=== PATIENT | female | born 1935 | race Native Hawaiian/Other Pacific Islander ===

== ENCOUNTER 2016-10-09 17:25 | Inpatient (IN) | payer OTHER ==
[~2016-10-09] VITALS: Ht 157.5 cm; Wt 58.3 kg
[~2016-10-09 17:25] MED LIST: AMLO2.5T PO; ASA LOW DOSE81 MG PO; DIVALPROEX125 MG PO; DOCU SOFT100 MG PO; DONE5TAB PO; MULTIVITAMIN AD1 TAB PO; REMERON SOLTAB15 MG PO; TRAM50TA PO; TRIFLUOPERAZ2 MG PO; [UNRECOGNIZED DRUG - OTHER] EX
--- NOTE | 2016-10-09 18:00 | NUR ---
RECEIVED PT FROM [facility]. RECEIVED REPORT FROM KRIS PICKERING AT [facility]. PT ARRIVED VIA WC. PT ADMITTED TO PCU FOR SEPSIS. ORIENTED PT TO SURROUNDINGS. PLACED PT ON MONITORS. V/S STABLE. SR NOTED. PT WEARING EYEGLASSES WITH RIGHT LENS MISSING. PT HAS REDNESS TO PERINEUM AND YEAST NOTED IN THE FOLDS OF GROINS. REDNESS RADIATED TO BUTTOCKS. PT'S RIGHT HEEL RED, ABRASIONS NOTED TO TOP OF RIGHT FOOT AND RIGHT 2ND TOE.
--- NOTE | 2016-10-09 18:05 | NUR ---
BLOOD CULTURES X 2 COLLECTED. PT CAME WITH 22G IV IN L FA SL.
--- NOTE | 2016-10-09 18:25 | NUR ---
16F YANG INSERTED VIA TAIL BOARD MAN. CLOUDY YELLOW URINE WITH SEDIMENT NOTED. SPECIMEN COLLECTED. RECTAL SWAB OBTAINED FOR CDIFF.
[2016-10-09 19:00] VITALS: BP 101/42
--- NOTE | 2016-10-09 19:00 | NUR ---
PATIENT IS ALERT TO VOICE WITH CONFUSION. MARKET RESEARCHER, 16 FR YANG, IV 22GA LEFT FORARM TKO. NO ACUTE DISTRESS NOTED. BED IN LOW POSITION, TWO RAILS UP.
[2016-10-09 19:09] VITALS: BP 104/47; TEMP 98.3; Ht 157.5 cm; Wt 58.3 kg
[2016-10-09 20:00] VITALS: BP 107/42; TEMP 98.2
[2016-10-09 21:00] VITALS: BP 112/42
[2016-10-09] MEDS ORDERED: PROTONIX20 MG PO (21:45)
[2016-10-09 22:00] VITALS: BP 118/46
[2016-10-09] MEDS ORDERED: METAMUCIL0.52 GM PO (22:00)
--- NOTE | 2016-10-09 22:00 | NUR ---
PT ALERT AND REQUESTING SOMETHING TO EAT. PATIENT WAS GIVEN JELLO AND ATE 90% OF THE CUP. NO ACUTE DISTRESS OR COMPLAINTS AT THIS TIME.
[2016-10-09] MEDS ORDERED: ALUM-67 PO (22:14)
[2016-10-09] MEDS ORDERED: TYLENOL325 MG PO ×2 (22:16→22:21)
[2016-10-09] MEDS ORDERED: MAGNSUS68 PO (22:18)
[2016-10-09] MEDS ORDERED: EMOLOIN22 TOP (22:19)
[2016-10-09] MEDS ORDERED: ZIPR20IN IM (22:26)
[2016-10-09] MEDS ORDERED: RISP0.25 PO (22:28)
[2016-10-09] MEDS ORDERED: NITROFURANTN100 MG OR (22:31)
[2016-10-09] MEDS ORDERED: CITALOPRAM20 MG PO (22:32)
[2016-10-09] MEDS ORDERED: MEMA5TAB PO (22:33)
[2016-10-09] MEDS ORDERED: DIFLUCAN50 MG PO (22:35)
[2016-10-09] MEDS ORDERED: TERC0.4C VA (22:36)
[2016-10-09 23:00] VITALS: BP 107/40
[2016-10-10] VITALS (24 sets, daily range): BP systolic 81–137; BP diastolic 36–84; TEMP 97.5–98.4
--- NOTE | 2016-10-10 03:23 | NUR ---
PT RESTING AND WAKES TO VOICE. NO COMPLAINTS NOTED. NO ACUTE DISTRESS. OCCASIONAL NON PRODUCTIVE COUGH NOTED. WILL CONTINUE TO MONITOR.
[2016-10-10 05:58] LABS: PLATELET COUNT 213 K/uL (152-353)
[2016-10-10 06:21] LABS: POTASSIUM 3.3 mmol/L (3.6-5.2); SODIUM 136 mmol/L (136-145)
--- NOTE | 2016-10-10 07:30 | NUR ---
AM ASSESSMENT DONE.
--- NOTE | 2016-10-10 08:39 | NUR ---
PT SITTING UP IN BED EATING BREAKFAST.
--- NOTE | 2016-10-10 08:52 | NUR ---
PT C/O R 2ND TOE PAIN. 10/16. WILL MEDICATE.
--- NOTE | 2016-10-10 09:50 | NUR ---
PT RESTING QUIETLY WITH EYES CLOSED. WILL CONTINUE TO MONITOR.
--- NOTE | 2016-10-10 11:30 | NUR ---
PT WATCHING TV. NAD NOTED AT THIS TIME.
--- NOTE | 2016-10-10 12:45 | NUR ---
PT SITTING UP IN BED EATING LUNCH.
--- NOTE | 2016-10-10 13:50 | NUR ---
DR. URENA HERE TO SEE PT.
--- NOTE | 2016-10-10 16:15 | NUR ---
PT WATCHING TV. NAD NOTED AT THIS TIME.
--- NOTE | 2016-10-10 18:08 | NUR ---
PT SITTING UP EATING SUPPER. NAD NOTED AT THIS TIME.
--- NOTE | 2016-10-10 19:30 | NUR ---
PATIENT AWAKE, WATCHING TV, NO COMPLAINTS, NO ACUTE DISTRESS. 16 GA YANG INTACT, MILL ATTENDANT, PULSE OX, AND NIBP, IV 20 GA RIGHT AC TKO, FLUSHED WITH 10 CC NS AND PATENT. IV 22 GA LEFT HAND PATENT AND FLOWING WITH NS @ 75 ML/HR. BED IN LOW POSITION, TWO SIDE RAILS UP/
--- NOTE | 2016-10-10 20:00 | NUR ---
PATIENT WATCHING TV WITHOUT COMPLAINTS. NO ACUTE DISTRESS NOTED.
--- NOTE | 2016-10-10 20:50 | NUR ---
PATIENT COMPLAINS OF TENDERNESS TO HER RIGHT LITTLE TOE. COVER WAS REMOVED AND PATIENT VOICED RELIEF OF DISCOMFORT AT THIS TIME.
--- NOTE | 2016-10-10 21:53 | NUR ---
PATIENT REQUEST TO HAVE HER HEAD LET DOWN SO SHE COULD GO TO SLEEP. NO ACUTE DISTRESS NOTED. WILL CONTINUE TO MONITOR.
[2016-10-11] VITALS (24 sets, daily range): BP systolic 99–161; BP diastolic 39–80; TEMP 98.2–99.6
--- NOTE | 2016-10-11 03:14 | NUR ---
PATIENT AWAKE AND RESTLESS. PATIENT SEEMS MORE ANXIOUS " REPEATING TO ASK FOR HER WALKER AND WANTING TO KNOW WHY HER ISNT HERE AND WHY HER HASNT CALLED, ASKING WHY SHE CANT GO HOME"
--- NOTE | 2016-10-11 03:30 | NUR ---
CONTACTED DR JONES ABOUT PATIENTS CONDITION. PORBV BY DR JONES PATIENT WAS TO BE GIVEN GEODON 10MG IM ONCE.
--- NOTE | 2016-10-11 04:09 | NUR ---
PT WAS COMPLAINING OF PAIN TO HER R TOE. PT WAS GIVEN TYLENOL 650 MG PO FOR PAIN RELIEF @ 0400.
--- NOTE | 2016-10-11 06:09 | NUR ---
PT ASEEP AND RESTING. AWAKE AND ALERT TO VOICE. NO COMPLAINTS OR ACUTE DISTRESS NOTED. WILL CONTINUE TO MONITOR.
[2016-10-11 06:42] LABS: PLATELET COUNT 184 K/uL (152-353)
[2016-10-11 06:52] LABS: POTASSIUM 3.6 mmol/L (3.6-5.2); SODIUM 136 mmol/L (136-145)
--- NOTE | 2016-10-11 07:00 | NUR ---
REPORT FROM PM STAFF. PT RESTING WITH EYES CLOSED, COLOR PINK,SKIN W/D.RESP EVEN & UNLABORED,O2 SATS 95% ON RM AIR. CHEST ESS CLEAR WITH DIMINISED BASES. CONGESTED SOUNDING COUGH AT INTERVALS. YANG TO BSD WITH CL YELLOW URINE. BS+. FEET UP ON A PILLOW,HEEL PROTECTOR INTACT R FOOT. ROUSES TO TOUCH & VOICE & BACK TO SLEEP. IV NS INFUSING INTO LFA IV SITE WITHOUT PROBLEMS PER DR'S ORDER.
--- NOTE | 2016-10-11 09:30 | NUR ---
PT AWAKE,FED 50% OF MEAL. ORIENTED TO NAME.PT STATES'IM GOING TO '. REALITY ORIENTATION. REMAINS CONFUSED BUT CALM.
--- NOTE | 2016-10-11 09:51 | NUR ---
PT COUGHING,O2 SAT DOWN TO 91%,HR UP TO 179 BRIEFLY WHILE COUGHING,PLACED PT ON O2 AT 2L/NC. O2 SATS 95%.
--- NOTE | 2016-10-11 11:16 | NUR ---
PT WITH INCONTINENT SOFT BROWN BM, PERICARE,PT ASSISTED TO TURN FOR COMFORT. PT CONTINUES TO COUGH AT INTERVALS. REPORTED TO MARIA L GOOD RN/BEAU/DR URENA.
--- NOTE | 2016-10-11 12:00 | NUR ---
OSMIN BUNDY SPEECH THERAPY IN TO SEE PT TO EVALUATE COUGHING AFTER EATING & DRINKING.
--- NOTE | 2016-10-11 12:10 | NUR ---
DR URENA IN TO SEE PT. NEW ORDERS.
--- NOTE | 2016-10-11 13:49 | NUR ---
PT WITH LARGE LOOSE BROWN BM. PERICARE,LANISEPTIC APPLIED,TURNED & REPOSITIONED FOR COMFORT.
--- NOTE | 2016-10-11 16:45 | NUR ---
PT WITH LARGE LOOSE BROWN BM. PERICARE,LANISEPTIC APPLIED TO GROIN & RED AREA ON R BUTTOCK.GOWN & DRAW SHEET CHANGED.REPOSITIONED FOR COMFORT. PT PLEASANT. CONFUSED. PT CONTINUES TO COUGH AT INTERVALS.
--- NOTE | 2016-10-11 17:36 | NUR ---
PT MEDICATED FOR COUGHWITH [address] ORDER[address]
--- NOTE | 2016-10-11 18:21 | NUR ---
PT SITTING UP WATCHING TV, PT COUGHING AT INTERVALS,O2 SATS 95% ON 2L/NC.
--- NOTE | 2016-10-11 22:10 | NUR ---
PT HAS BEEN YELLING AND RESTLESS. NOTED PT WITH DIFFICULTY IN SWALLOWING. PT WITH AUDIBLE WHEEZING AND CRACKLES. PT WAS GIVEN GEODON 10 MG IM TO HER RGM.
--- NOTE | 2016-10-11 22:34 | NUR ---
PT HAS BEEN UP TWO TIMES TO USE BSC. PT HAD SMALL BM. BLACK SOFT STOOL.
--- NOTE | 2016-10-11 22:48 | NUR ---
PT WAS REPOSITIONED TO HER LEFT SIDE.
[2016-10-12] VITALS (24 sets, daily range): BP systolic 96–155; BP diastolic 52–93; TEMP 99.1–100
--- NOTE | 2016-10-12 04:43 | NUR ---
PT WAS REPOSITIONED TO HER LEFT SIDE. PT COUGHING UNPRODUCTIVELY. PT WITH WHEEZING AUDIBLE. APPLIED LANASEPTIC TO PT'S INNER THIGHS AND SRUTHI AREA.
[2016-10-12 05:26] LABS: PLATELET COUNT 213 K/uL (152-353)
[2016-10-12 05:42] LABS: POTASSIUM 3.5 mmol/L (3.6-5.2); SODIUM 136 mmol/L (136-145)
--- NOTE | 2016-10-12 06:03 | NUR ---
SEE EMAR TYLENOL 650 MG PO GIVEN FOR TEMP 100 DEGREES.
--- NOTE | 2016-10-12 08:21 | NUR ---
AM ASSESSEMENT DONE TEMP 99.3 ORAL HOB UP CHEST X RAY DONE. NOTED NON PRODUCTIVE COUGH.. RESP DEPT HERE PT STARTED ON BREATHING TX.
--- NOTE | 2016-10-12 10:30 | NUR ---
REPOSITIONED IN BED . NOTED PT COUGHING AFTER EATING HOB UP HIGH, PT ON THICKEN LIQUIDS AND PUREED DIET WILL TAKE FEW BITES THEN STOP " I'VE HAD ENOUGH". NOTED INCREASED COUGH AFTER EATING. ASSISTED WITH BED BATH SKIN CARE. PT SLEEPING AT INTERVALS.
--- NOTE | 2016-10-12 11:00 | NUR ---
DR URENA VISITED CHECKED PT RECIEVED NEW ORDERS. REPORT PT COUGHING, NURSING HELD BACK NOT GIVING VERY MUCH EVEN THICKEN LIQUIDS. RECIEVED ORDER TO HOLD NPO EXCEPT CRUSHED MEDS MIXED WITH PUDDING. MONITOR DELAYED COUGHING.
--- NOTE | 2016-10-12 15:45 | NUR ---
TURNED AND REPOSITIONED IN BED HOB UP. COUGHING BUT NOT MUCH. HAS LIKE A DELAYED SWALLOW THEN COUGH. RESTED BETTER SINCE HOLDING FOOD AND FLUID, PUREED AND THICKEN.
--- NOTE | 2016-10-12 18:00 | NUR ---
RESTING QUIETLY TURNED AND REPOSITIONED. MOUTH CARE RAYMOND OK. PT REMAINS NPO. HOB UP.
[2016-10-13] VITALS (22 sets, daily range): BP systolic 99–161; BP diastolic 56–80; TEMP 89–100.6
--- NOTE | 2016-10-13 00:39 | NUR ---
PT WAS GIVEN TYLENOL CRUSHED WITH PUDDING. PT IS POSITIONED WITH HEAD OF BED UP.
--- NOTE | 2016-10-13 07:30 | NUR ---
AM ASSESEMENT DONE. PT NPO CONTINUES WITH COUGH. IV LEFT ARM NOT WORKING WILL NOT FLUSH. IV BENT. IV REMOVED MOVED TO RIGHT ARM GOOD BLOOD RETURN INSP WHEEZE RIGHT LUNG FIELD.
[2016-10-13 08:27] LABS: PLATELET COUNT 237 K/uL (152-353)
[2016-10-13 08:46] LABS: POTASSIUM 3.7 mmol/L (3.6-5.2); SODIUM 136 mmol/L (136-145)
--- NOTE | 2016-10-13 09:30 | NUR ---
PT RESTING WITH EYES CLOSED,NO C/O PAIN AT THIS TIME, CONGESTED COUGH AT INTERVALS.
--- NOTE | 2016-10-13 11:08 | NUR ---
REPOSITIONED IN BED SKIN CARE WET COUGH CONTINUES, PT KEEPS ASKING FOR WATER, WET HER MOUTH, PT STATES " I WANT A BIG CUP OF WATER" EXPLAINED TO PT THAT SHE WAS NOT SWALLOWING PROPERLY, IT WAS GETTING INTO HER LUNGS. PT DID NOT UNDERSTAND KEEPS ASKING FOR WATER. WILL WET MOUTH WITH SPONGE. HOB UP.
--- NOTE | 2016-10-13 11:50 | NUR ---
PT GETTING LOUD CALLING OUT FOR WATER, KEEPING MOUTH WET, EXPLAINED THE NEED TO HOLD FLUIDS TOLD HER THAT SHE WAS NOT SWALLOWING RIGHT. PT GETTING ANXIOUS GEODON 10 MG IM L GM.
--- NOTE | 2016-10-13 13:00 | NUR ---
MED EFFECTIVE RESTING EASIER. REPOSITIONED IN BED. DR URNEA VISITED TALKED WITH PT TRIED TO EXPLAIN TO HER WHY SHE COULD NOT DRINK. PT COUGHING AT INTERVALS. PT HAD ALSO BEEN UPSET THAT HER HAD NOT BEEN HERE TO SEE HER. RESTING BETTER NOW.
--- NOTE | 2016-10-13 14:49 | NUR ---
TURNED AND REPOSITIONED LEFT SIDE. RESTING QUIETLY.
--- NOTE | 2016-10-13 16:24 | NUR ---
REPOSITIONED TO RIGHT SIDE. PT CONTINUES TO ASK FOR WATER. GAVE SMALL SIP THICKEN TEA MED CRUSHED GAVE WITH PUDDING HOB UP. PT COUGHING NON PRODUCTIVE.
--- NOTE | 2016-10-13 20:34 | NUR ---
ORAL CARE GIVEN. REPOSITIONED PT IN BED.
--- NOTE | 2016-10-13 21:34 | NUR ---
PM ASSESSMENT WAS COMPLETED. PT IS CONFUSED AND YELLING "". STATES SHE IS "MAD AT HER BECAUSE HE IS WITH ANOTHER WOMAN". ATTEMPT TO ORIENT PT TO SITUATION. PT IS NPO BECAUSE UNABLE TO SWALLOW. PT IS POSITIONED UP IN BED.ASPIRATION PRECAUTIONS IN USE. LOWER EXT ARE ELEVATED ON PILLOW.
--- NOTE | 2016-10-13 22:05 | NUR ---
LASIX 20 MG IVSP GIVEN.
[2016-10-14] VITALS (13 sets, daily range): BP systolic 112–146; BP diastolic 6–90; TEMP 98.3–99.4
--- NOTE | 2016-10-14 01:57 | NUR ---
PT YELLING "WHO IS GONNA HELP ME GET READY FOR BED". ATTEMPT TO ORIENT PT TO SITUATION. PT WITH MENTAL HEALTH HX.
--- NOTE | 2016-10-14 02:09 | NUR ---
ORAL CARE GIVEN. ASSESSED PT'S SKIN FOR ANY REDNESS. NONE NOTED. REPOSITIONED LOWER EXT ON PILLOW. RIGHT FOOT WITH FOOT DROP. HEEL PROTECTOR ON AND INTACT.
--- NOTE | 2016-10-14 02:51 | NUR ---
ULTRAM 50 PO GIVEN FOR ELEVATED TEMP AND ARTHRITIS.
[2016-10-14 04:43] LABS: POTASSIUM 3.5 mmol/L (3.6-5.2); SODIUM 134 mmol/L (136-145)
--- NOTE | 2016-10-14 05:14 | NUR ---
TOBRAMYCIN 80 MG STARTED. TOBRAMYCIN LEVEL IN NORMAL RANGE.
--- NOTE | 2016-10-14 05:15 | NUR ---
0506 AM GEODON 10 MG GIVEN IM TO RGM PT YELLING AND SCREAMING. RESTLESS.
--- NOTE | 2016-10-14 07:30 | NUR ---
AM ASSESSMENT DONE. MOUTH CARE DONE. PT REPOSITIONED TO R SIDE.
[2016-10-14 08:30] LABS: PLATELET COUNT 252 K/uL (152-353)
--- NOTE | 2016-10-14 09:56 | NUR ---
PT RESTING QUIETLY WITH EYES CLOSED.
--- NOTE | 2016-10-14 11:00 | NUR ---
DR. URENA HERE TO SEE PT.
--- NOTE | 2016-10-14 12:14 | NUR ---
PT AGITATED AND HOLLERING OUT. YESSY SULLIVAN. ATTEMPTED TO ORIENT PT TO ROOM SURROUNDINGS.
--- NOTE | 2016-10-14 12:48 | NUR ---
PT RESTING QUIETLY WITH EYES CLOSED.
--- NOTE | 2016-10-14 14:18 | NUR ---
PT RESTING QUIETLY WITH EYES CLOSED.
--- NOTE | 2016-10-14 15:06 | NUR ---
MONICO HAMILTON HERE TO SEE PT.
--- NOTE | 2016-10-14 16:30 | NUR ---
PT'S CALLED TO CHECK ON PT.
--- NOTE | 2016-10-14 17:44 | NUR ---
PT REPOSITIONED IN BED. NAD NOTED AT THIS TIME.
--- NOTE | 2016-10-14 20:40 | NUR ---
PT YELLING OUT "WENCESLAO, WENCESLAO, WENCESLAO" PT EXPERIENCING CONFUSION AND NOT EASILY REDIRECTED. PT BECOMING AGITATED. PRN DOSE OF GEODON TO BE GIVEN. NO ACUTE RESP DISTRESS, WILL CONTINUE TO MONITOR PT.
[2016-10-15] VITALS (24 sets, daily range): BP systolic 122–181; BP diastolic 49–90; TEMP 97.9–98.7
[2016-10-15 05:07] LABS: POTASSIUM 3.1 mmol/L (3.6-5.2); SODIUM 140 mmol/L (136-145)
[2016-10-15 05:41] LABS: PLATELET COUNT 302 K/uL (152-353)
--- NOTE | 2016-10-15 07:30 | NUR ---
PATIENT LAYING IN BED ALERT AND RESPONSIVE. BED IN LOWER POSITION, TWO SIDE RAILS UP. RESEARCH MANAGEMENT ASSOCIATE, NIBP, PULSE OX, O2 @ 2LPM NC, IV 22 GA RIGHT FORARM, IV 20 GA RIGHT AC, 16 FR YANG CATH. NO ACUTE DISTRESS NOTED. PATIENT ASKING WHEN SHE CAN EAT.
--- NOTE | 2016-10-15 09:15 | NUR ---
PATIENT COMPLAINS OF PAIN TO HER RIGHT ARM. FOREARM IV SITE APPEARS RED AND HAS EDEMA NOTED. FLUIDS WERE MOVED TO THE IV SITE IN THE RIGHT AC. IV WAS REMOVED FROM THE RIGHT FOREARM.
--- NOTE | 2016-10-15 09:45 | NUR ---
PATIENT COMPLAINS ABOUT BEING HUNGRY AND WANTS TO EAT. IV WAS STARTED IN THE LEFT FOREARM AND BLOOD DRAWN FOR THE LABS.
--- NOTE | 2016-10-15 10:22 | NUR ---
PATIENT ASKING FOR WATER. MOUTH CARE WAS GIVEN TO MOISTEN LIPS AND TOUNGE. PATIENT SAID SHE WAS BETTER NOW
--- NOTE | 2016-10-15 10:33 | NUR ---
DR URENA AT BEDSIDE TO ASSESS PT
--- NOTE | 2016-10-15 10:40 | NUR ---
VERBAL ORDER BY DR URENA TO CONTINUE PO TYLENOL [address] URENA INSTRUCTED TO GIVE WITH SMALL AMOUNT OF WATER AND ALLOW FOR MINIMAL THICKENED LIQUIDS.
--- NOTE | 2016-10-15 10:50 | NUR ---
PATIENT WAS POSITIONED IN A FOWLERS POSITION. SHE WAS GIVEN PRESCRIBED TYLENOL FOLLOWED BY SMALL SIPS OF WATER. NO ISUES OR COMPLAINTS. NO COUGH NOTED PRIOR OR AFTER. PATIENT WAS GIVEN ONE CUP OF JELLO PUDING WITHOUT INCIDENT OR COMPLAINT. SHE ATE IN SMALL AMOUNTS. NO COUGH NOTED PRIOR OR AFTER. PT LEFT IN FOWLERS POSITION AFTERWARDS.
[2016-10-15 11:14] LABS: POTASSIUM 3.2 mmol/L (3.6-5.2); SODIUM 137 mmol/L (136-145)
--- NOTE | 2016-10-15 13:15 | NUR ---
PT ON THE PHONE ESAU AT .
--- NOTE | 2016-10-15 14:00 | NUR ---
PT CONT TO TALK ABOUT HER , SHE WANTS STAFF TO CALL HIM AND ASK WHEN HE IS COMING TO SEE HER. PT IS EASLIY REDIRECTED. BUT EVENTUALLY GOES BACK TO TALKING ABOUT HER . PT IS CALM AT THIS TIME. YESSY IS NOT NEEDED AT THIS TIME
--- NOTE | 2016-10-15 16:00 | NUR ---
TALKING WITH PT. ANXIETY INCREASES, PT RE DIRECTED. PT BECOMES INCREASELY AGITATED WHEN TALKING ABOUT HER . PT IS PLEASANT OTHERWISE.
--- NOTE | 2016-10-15 17:00 | NUR ---
LARGE BM NOTED, PT CLEANED AND DRYED.
--- NOTE | 2016-10-15 17:04 | NUR ---
PT RESP INCREASED, HR INCREASED, PT AGITATED, PT WAS ASKED IF SHE THOUGHT SHE NEEDED SOMETHING FOR AGITATION, PT STATED SHE THOUGH SO. PT GIVEN GEOGON
--- NOTE | 2016-10-15 17:30 | NUR ---
PATIENT HAD BM, ALL BED LINEN CHANGED AND PATIENT CLEANED WITHOUT INCIDENT.NAD NOTED.
--- NOTE | 2016-10-15 18:45 | NUR ---
BEDSIDE REPORT RECEIVED FROM TG FOREMAN RN. HEP LOCK TO RIGHT AC DC'D DUE TO SWELLING AND REDNESS AT SITE. IV TO LEFT FOREARM INFUSING PER PUMP.
--- NOTE | 2016-10-15 19:15 | NUR ---
PM ASSESSMENT COMPLETED. YANG CATHETER DRAINING DONYA URINE AT BEDSIDE. PT TALKING AND LAUGHING WITH NURSES. PT INSTRUCTED PER TG FOREMAN RN ON INCENTIVE SPIROMETER. PT ABLE TO PULL 750 WITHOUT DIFFICULTY.
--- NOTE | 2016-10-15 19:55 | NUR ---
RESPIRATORY THERAPIST AT BEDSIDE FOR BREATHING TREATMENT.
--- NOTE | 2016-10-15 20:19 | NUR ---
PT REQUESTS BE CALLED. PT TALKED WITH PT. PT ASKING HIM TO VISIT HER, IS 84 YEARS OLD, STATES HE CANNOT MAKE THE TRIP. WILL SEE HER WHEN SHE RETURNS TO [place].
--- NOTE | 2016-10-15 21:08 | NUR ---
PT BECOMING INCREASINGLY AGITATED. PT STATES HER IS CHEATING ON HER AND IF SHE HAD ENOUGH MONEY SHE WOULD DIVORCE HIM. NURSE TALKING WITH PT CONCERNING OTHER AREAS OF HER LIFE, CHILDREN, GRANDCHILDREN, ETC.
--- NOTE | 2016-10-15 22:11 | NUR ---
PT BECOMING INCREASING AGITATED CONCERNING . MEDICATED WITH GEODON 10MG IM.
--- NOTE | 2016-10-15 22:53 | NUR ---
TRAMADOL GIVEN FOR BACK PAIN. PAIN SCALE 7.
--- NOTE | 2016-10-15 23:12 | NUR ---
PT YELLING SHE NEEDS TO CALL . NURSE EXPLAINED IT IS TOO LATE TO CALL ANYONE AT NIGHT. PT INSISTS POLICE BE SENT TO HER HOUSE TO SEE WHO HER HAS IN HIS BED. NURSE TRYING TO REORIENT PT. UNABLE TO REORIENT PT AT THIS TIME.
--- NOTE | 2016-10-15 23:30 | NUR ---
PT CONTINUES TO REMAIN AGITIATED STATING SHE HAS PNEUMONIA AND NEEDS TO BE TAKEN BY AMBULANCE TO HOSPITAL. UNABLE TO REORIENT.
--- NOTE | 2016-10-15 23:50 | NUR ---
DR. JONES NOTIFIED OF PT CONTINUED AGITATION. ORDER RECEIVED.
[2016-10-16] VITALS (23 sets, daily range): BP systolic 108–170; BP diastolic 54–87; TEMP 98.1–99
--- NOTE | 2016-10-16 00:07 | NUR ---
HALDOL 2.5MG GIVEN IV ORDERED FOR AGITATION.
--- NOTE | 2016-10-16 00:08 | NUR ---
PT SHOUTING TO CALL POLICE TO TAKE HER TO HER HOME.
--- NOTE | 2016-10-16 00:18 | NUR ---
RESPIRATORY THERAPIST PRESENT FOR BREATHING TREATMENT.
--- NOTE | 2016-10-16 01:00 | NUR ---
NURSE SITTING AT BEDSIDE HOLDING PT HAND TO CALM PT.
--- NOTE | 2016-10-16 02:52 | NUR ---
PT STATES DOES NOT WANT TO BE ALONE. NURSE AT BEDSIDE.
--- NOTE | 2016-10-16 05:54 | NUR ---
PT AWAKE. PT IS COOPERATIVE LONG NURSE IS IN HER SIGHT LINE. STATES SHE DOES NOT WANT TO BE ALONE.
--- NOTE | 2016-10-16 07:00 | NUR ---
REPORT FROM PM STAFF. PT RESTING IN LOW FOWLERS. NO C/O AT THIS THIS TIME.
[2016-10-16 07:40] LABS: PLATELET COUNT 381 K/uL (152-353)
[2016-10-16 07:41] LABS: POTASSIUM 3.2 mmol/L (3.6-5.2); SODIUM 139 mmol/L (136-145)
--- NOTE | 2016-10-16 09:00 | NUR ---
PT WITH LARGE LOOSE BM,PERICARE.
--- NOTE | 2016-10-16 11:00 | NUR ---
SPEECH AT BS TO CHECK PT;S SWALLOWING CAPABILITIES.
--- NOTE | 2016-10-16 11:14 | NUR ---
OSMIN BUNDY SPEECH CALLED PT'S ABOUT POSSIBLE FEEDING TUBE INSERTION. 'OK ' PER 'IF THE DR THINKS SHE NEEDS IT'.
--- NOTE | 2016-10-16 11:44 | NUR ---
PT CALLING OUT LOUDLY & FREQUENLY. AGGITATED BECAUSE HER HAS NOT BEEN TO SEE HER. MEDICATED WITH GEODON 10 MG IM PER ORDER. WHEN CALLED,DOESN'T WANT TO TALK TO PT.
--- NOTE | 2016-10-16 12:50 | NUR ---
PT WITH REPETITIVE CALLING FOR HELP.COME HERE ,COME HERE NURSE, I NEED SOME HELP. I WANT MY . PT TALKED TO NUMEROUS TIMES, ENCOURAGED TO TAKE SLOW DEEP BREATHS, PT WILL CALM WHEN NURSE OR OTHER STAFF AT BS,RR RATE 26& WILL SLOW TO NORMAL WHEN ENCOURAGED TO DO SO. RT IN WITH PT,O2 SAT 95% ON O2 AT 2L/NC. DR URENA IN TO SEE PT. PHONE CALL TO DR SKELTON PER DR URENA. DR SKELTON WILL COME BY TO SEE PT.
--- NOTE | 2016-10-16 13:20 | NUR ---
PT REMAINS AGGITATED AT INTERVALS CALLING OUT LOUDLY,ACCUSING HER OF 'HAVING A WOMAN WITH HIM'.'THATS WHY HE WON'T COME TO SEE ME'! PT TURNED & REPOSITIONED FOR COMFORT. PT CONTINUES TO CALL OUT LOUDLY, 'I WANT A DR, I WANT A DR,I WANT A DR, I WANT A DR!', REMINDED PT THAT THE DR HAD JUST LEFT. PT THEN SAYS REPETITIVELY, 'NURSE,NURSE.NURSE'! I NEED SOME HELP,HELP,HELP!' ASSURED PT THAT SHE WAS OK & WE WERE HERE WITH HER.
--- NOTE | 2016-10-16 13:40 | NUR ---
DR SKELTON IN TO SEE PT. PT CONTINUES WITH HER REPETITIVE CALLING OUT & REPEATING SELF, NEW ORDERS.
--- NOTE | 2016-10-16 14:22 | NUR ---
PT MEDICATED WITH RISPIERDONE CONSTA 50 MG IM R DELTOID PER DR BERGERON ORDER.PT CONTINUES WITH REPETITIVE CALLING OUT AT THIS TIME.
--- NOTE | 2016-10-16 17:21 | NUR ---
TALKED WITH . WILL DO GT INSERTION TOMORROW. PHONE CALL TO DR CORTES,TALKED TO KAROLYN,WILL REMIND HIM OF GT INSERTION TOMORROW.
--- NOTE | 2016-10-16 19:00 | NUR ---
BEDSIDE REPORT RECEIVED FROM ALLA ZELAYA RN. IV SITE WITHOUT REDNESS OR SWELLING. YANG CATHETER DRAINING CLEAR URINE AT BEDSIDE. PT TALKING CONSTANTLY BEGGING FOR NIGHTTIME MEDICATION. NURSE EXPLAINED WILL BE GIVING MEDICATION TO HER.
--- NOTE | 2016-10-16 19:27 | NUR ---
HALDOL 4MG AND ATIVAN 1MG IM IN RIGHT HIP. PT TOLERATED WELL.
--- NOTE | 2016-10-16 19:41 | NUR ---
PT CONTINUES TO ACUSE OF HAVING A WOMAN IN HER HOUSE WHILE SHE IS HERE.
--- NOTE | 2016-10-16 19:57 | NUR ---
PT REFUSES TO WEAR SAMMY HOSE. STATES YOU WILL NOT PUT THOSE ON ME.
--- NOTE | 2016-10-16 20:01 | NUR ---
NURSE REMAINS AT BEDSIDE. PT STATES LONG SHE SEES ME SHE CAN BREATH BETTER. PT CONTINUES TO HAVE NONPRODUCTIVE COUGH.
--- NOTE | 2016-10-16 21:43 | NUR ---
PT RESTING QUIETLY AT PRESENT. RESP EVEN AND UNLABORED.
[2016-10-17] VITALS (31 sets, daily range): BP systolic 107–152; BP diastolic 47–95; TEMP 97.5–98.6
--- NOTE | 2016-10-17 04:05 | NUR ---
NURSE WANTED PATIENTTO SLEEP AT MIDNIGHT TREATMENT AND FOUR AM TREATMENT
[2016-10-17 06:23] LABS: POTASSIUM 3.7 mmol/L (3.6-5.2); SODIUM 138 mmol/L (136-145)
[2016-10-17 06:36] LABS: PLATELET COUNT 392 K/uL (152-353)
--- NOTE | 2016-10-17 09:26 | NUR ---
RESTING QUIETLY THIS MORNING MEDS GIVEN LAST NIGHT EFFECTIVE. PT FOR SURGERY TODAY PEG TO BE PLACED. PT TURNED AND REPOSITIONED IN BED HOB UP. CONTINUES WITH COUGH NONPRODUCTIVE, SCATTERED RONCHI. PT IS NPO.
--- NOTE | 2016-10-17 10:30 | NUR ---
PT TALKING MORE NOTED INCREASED AGITATION, REPEATING HERSELF, PT NPO FOR SURGERY. MEDS HELD FOR AGITATION. PT WANTS SOMETHING TO EAT AND DRINK.
--- NOTE | 2016-10-17 11:28 | NUR ---
JASON FROM OR HERE ON PHONE WITH RECIEVED CONSENT FOR PEG TUBE PLACEMENT. DR URENA HERE RECIEVED REPORT ON PT. PT TO OR VIA BED FOR PEG TUBE PLACEMENT.
--- NOTE | 2016-10-17 12:00 | NUR ---
PT'S DAUGHTER ESTEPHANIA PARSONS CALLED TO CK ON PT. DISCUSSED PT'S STATUS & INSERTION OF GASTRIC TUBE.
--- NOTE | 2016-10-17 12:30 | NUR ---
RECIEVED CALL FROM JASON REPORT ON PT. PT COMING BACK TO U1. PT ALERT BACK ON MONITOR, SURGICAL SITE CLEAN AND DRY. CHECKED BLOOD SUGAR 94. NO COMPLAINTS OF PAIN.
--- NOTE | 2016-10-17 14:02 | NUR ---
PT C/O PAIN AT OP SITE, CHECKED DRESSING CLEAN AND DRY. REPORT TO DR URENA, RECIEVED NEW ORDERS FOR PAIN MEDS.
--- NOTE | 2016-10-17 14:24 | NUR ---
PT RECIEVED PAIN MEDS ORDERED CALLING OUT OVER AND OVER "I WANT TO CALL MY " HAD TALKED WITH HIM EARLIER, PT KEEPS REPEATING HERSELF. "WHY WON'T YOU LET ME CALL MY , I PROMISE I WON'T FUSS AT HIM". PT STATED THAT SHE IS GETTING AGITATED.
--- NOTE | 2016-10-17 14:45 | NUR ---
PT GETTING LOUDER, AGITATED RECIEVED MED FOR AGITATION IM ORDERED. APPLIED BELLY BINDER. INC SMALL AMOUNT BROWN STOOL SRUTHI CARE DONE.
--- NOTE | 2016-10-17 15:24 | NUR ---
RESTING MUCH BETTER EYES CLOSED RESP EVEN MEDS EFFECTIVE.
--- NOTE | 2016-10-17 17:25 | NUR ---
PT RESTING QUIETLY WITH EYES CLOSED.NO C/O AT THIS TIME.
--- NOTE | 2016-10-17 18:38 | NUR ---
PT AWAKE CALLING OUT. CALLING FOR FAMILY MEMBER TO HELP HER GET OUT. PT ALSO BEGINNING TO C/O PAIN ABD. DRESSING DRY CLEAN INTACT WILL GIVE PAIN MEDS ORDERED.
--- NOTE | 2016-10-17 18:58 | NUR ---
PT CRYING OUT C/O " I'M HURTING" DEMEROL 12.5 MG IV SLOWLY FOR POST OP PAIN.
--- NOTE | 2016-10-17 19:44 | NUR ---
LAVINIA Donovan RN WANTED PATIENT TO REST SHE RECENTLY COME BACK FROM SURGERY AND HAS PAIN MEDICATION.GOING TO GIVE MIDNIGHTTX
[2016-10-18] VITALS (16 sets, daily range): BP systolic 102–150; BP diastolic 46–87; TEMP 97.2–98.4
--- NOTE | 2016-10-18 02:45 | NUR ---
ORAL CARE GIVEN. LUBRICATED LIPS.
--- NOTE | 2016-10-18 04:15 | NUR ---
PT WAS REPOSITIONED TO HER LEFT SIDE AND ORAL CARE WAS GIVEN. PEG TUBE TO GRAVITY.
[2016-10-18 05:47] LABS: PLATELET COUNT 398 K/uL (152-353)
[2016-10-18 06:17] LABS: POTASSIUM 3.9 mmol/L (3.6-5.2); SODIUM 137 mmol/L (136-145)
--- NOTE | 2016-10-18 07:30 | NUR ---
AM ASSESSMENT DONE. PT HAS AN ABD BINDER ON TO PROTECT PEG FROM PT. ABD BINDER REMOVED. PT HAS IRRITATED AREAS UNDERNEATH BOTH BREASTS. LANASEPTIC APPLIED TO AREAS. PT REPOSTIONED TO R SIDE.
--- NOTE | 2016-10-18 09:50 | NUR ---
PT RAMBLING, HOLLERING OUT "YOU ARE ALL LIARS". ATTEMPTED TO ORIENT PT TO SURROUNDINGS.
--- NOTE | 2016-10-18 10:51 | NUR ---
PT WATCHING TV. WILL CONTINUE TO MONITOR.
--- NOTE | 2016-10-18 11:48 | NUR ---
PT RESTING QUIETLY WITH EYES CLOSED.
--- NOTE | 2016-10-18 12:20 | NUR ---
PT REPOSITIONED IN BED. PT HOLLERING OUT.
--- NOTE | 2016-10-18 12:35 | NUR ---
DR. CORTES HERE TO SEE PT. PEG TUBE OK TO USE. DRESSING APPLIED TO PEG TUBE.
--- NOTE | 2016-10-18 12:42 | NUR ---
DR. URENA HERE TO SEE PT.
--- NOTE | 2016-10-18 13:15 | NUR ---
MONICO HAMILTON HERE TO SEE PT.
--- NOTE | 2016-10-18 13:30 | NUR ---
DR. URENA HERE TO SEE PT.
--- NOTE | 2016-10-18 14:58 | NUR ---
FED PT 1/2 CAN OF ENSURE WITH WATER FLUSH BEFORE AND AFTER. PT RAYMOND WELL.
--- NOTE | 2016-10-18 14:59 | NUR ---
BLADDER TRAINING STARTED. IV D/C'D WITH TIP INTACT PRESSURE DRESSING APPLIED.
--- NOTE | 2016-10-18 15:12 | NUR ---
MOUTH CARE DONE.
--- NOTE | 2016-10-18 16:45 | NUR ---
YANG D/C'D WITH TIP INTACT. 375 ML URINE OUTPUT. PT HAD A BM. PT CLEANED UP AND REPOSITIONED.
--- NOTE | 2016-10-18 17:57 | NUR ---
GAVE REPORT TO KRIS PICKERING AT [facility].
--- NOTE | 2016-10-18 18:05 | NUR ---
PT TRANSFERRED TO [facility] IN [facility].
== END 2016-10-18 18:05 | disposition other institution (70) | DRG 871 ==
LOC: ICU 17:25
PROVIDERS: Emergency Medicine; ADMIT Psychiatry & Neurology Psychiatry
PROC: 0DH63UZ Insertion of Feeding Device into Stomach, Percutaneous Approach (ICD-10-PCS; principal; 2016-10-17)
DX: A41.89 Other specified sepsis (principal); J18.8 Other pneumonia, unspecified organism; N39.0 Urinary tract infection, site not specified; J44.1 Chronic obstructive pulmonary disease with (acute) exacerbation; R50.9 Fever, unspecified; D72.828 Other elevated white blood cell count; N76.0 Acute vaginitis; M21.371 Foot drop, right foot; E87.6 Hypokalemia; E83.42 Hypomagnesemia; R74.8 Abnormal levels of other serum enzymes; R13.12 Dysphagia, oropharyngeal phase; K29.60 Other gastritis without bleeding
CPT/HCPCS: 36415; 51702; 80053; 80200; 81000; 82272; 83605; 83735; 83880; 84100; 85007; 85027; 87040; 87045; 87081; 87088; 87205; 87328; 87329; 87493; 87798; 87899; 94640; 94664; 94760; 96372; J0456; J0696; J1630; J1650; J1940; J2060; J2175; J2405; J2704; J2794; J3260; J3475; J3480; J3486; J3490